=== PATIENT | male | born 1975 | race Caucasian/White ===

== ENCOUNTER → 2017-05-22 12:54 | Outpatient (CLI) | payer BC | END | disposition home or self-care (01) | LOC: D.MRI 12:54 | DX: G35 Multiple sclerosis (principal) ==

== ENCOUNTER → 2017-11-18 15:31 | Outpatient (CLI) | payer BC | END | disposition home or self-care (01) | LOC: D.MRI 15:30 | DX: G35 Multiple sclerosis (principal); R42 Dizziness and giddiness ==

== ENCOUNTER → 2018-06-30 10:44 | Outpatient (CLI) | payer BC | END | disposition home or self-care (01) | LOC: D.MRI 10:44 | DX: G35 Multiple sclerosis (principal) ==

== ENCOUNTER → 2019-10-15 12:49 | Outpatient (CLI) | payer BC ==
[2019-10-16 12:09] LABS: BASOS 1 % (Not Estab.); CD4 - % CD4 POS. LYMPH 48.6 % (30.8-58.5); CD4 - ABSOLUTE CD4 HELPER 1264 /uL (359-1519); EOS 3 % (Not Estab.); EOS (ABSOLUTE) 0.2 x10E3/uL (0.0-0.4); HEMOGLOBIN 12.9 g/dL (13.0-17.7); LYMPHS 36 % (Not Estab.); LYMPHS (ABSOLUTE) 2.6 x10E3/uL (0.7-3.1); MCH 30.4 pg (26.6-33.0); MCHC 35.8 g/dL (31.5-35.7); MCV 85 fL (79-97); MONOCYTES 9 % (Not Estab.); MONOCYTES (ABSOLUTE) 0.6 x10E3/uL (0.1-0.9); NEUTROPHILS 51 % (Not Estab.); NEUTROPHILS (ABSOLUTE) 3.7 x10E3/uL (1.4-7.0); PLATELETS 244 x10E3/uL (150-450); RBC 4.24 x10E6/uL (4.14-5.80); RDW 13.9 % (11.6-15.4); WBC 7.2 x10E3/uL (3.4-10.8)
== END | disposition home or self-care (01) ==
LOC: D.LAB 12:49
PROVIDERS: ATTEND Psychiatry & Neurology Neurology
DX: G35 Multiple sclerosis (principal)

== ENCOUNTER → 2020-01-31 10:26 | Outpatient (CLI) | payer BC ==
[2020-01-31 11:45] LABS: HEMATOCRIT 41.6 % (42.0-54.0); HEMOGLOBIN 14.5 g/dL (13.5-17.5); LYMPHOCYTES 35.5 % (15-50); MCH 31.4 pg (26.0-34.0); MCHC 34.9 g/dL (31.0-37.0); MEAN PLATELET VOLUME 11.1 fL (7.4-10.4); NEUTROPHILS 54.7 % (40-80); PLATELET COUNT 214 10x3/uL (130-400); RBC 4.62 10x6/uL (4.20-6.10); RDW 12.6 % (11.5-14.5); WBC 7.3 10x3/uL (4.8-10.8)
[2020-01-31 11:48] LABS: ALBUMIN 4.3 g/dL (3.4-5.0); ALKALINE PHOSPHATASE 79 U/L (30-120); ALT (SGPT) 26 U/L (10-68); BILIRUBIN - TOTAL 0.51 mg/dL (0.2-1.3); CALC OSMOLALITY 275 mosm/kg (275-300); CALCIUM 9.6 mg/dL (8.5-10.1); CARBON DIOXIDE 30.2 mmol/L (21.0-32.0); CHLORIDE - SERUM 100 mmol/L (98-107); CREATININE - SERUM 0.9 mg/dL (0.6-1.3); GLUCOSE 86 mg/dL (74-106); POTASSIUM - SERUM 4.6 mmol/L (3.5-5.1); PROTEIN - SERUM 7.4 g/dL (6.4-8.2); SODIUM 139 mmol/L (136-145); UREA NITROGEN 11 mg/dL (7-18); eGFR NON AFRICAN AMERICAN > 90 mL/min (90-120)
[2020-02-01 18:08] LABS: BASO (ABSOLUTE) 0.1 x10E3/uL (0.0-0.2); BASOS 1 % (Not Estab.); EOS 3 % (Not Estab.); EOS (ABSOLUTE) 0.2 x10E3/uL (0.0-0.4); HEMATOCRIT 41.9 % (37.5-51.0); HEMOGLOBIN 14.3 g/dL (13.0-17.7); LYMPHS 34 % (Not Estab.); LYMPHS (ABSOLUTE) 2.5 x10E3/uL (0.7-3.1); MCH 31.4 pg (26.6-33.0); MCHC 34.1 g/dL (31.5-35.7); MCV 92 fL (79-97); MONOCYTES 9 % (Not Estab.); MONOCYTES (ABSOLUTE) 0.6 x10E3/uL (0.1-0.9); NEUTROPHILS 52 % (Not Estab.); NEUTROPHILS (ABSOLUTE) 3.8 x10E3/uL (1.4-7.0); PLATELETS 214 x10E3/uL (150-450); RBC 4.55 x10E6/uL (4.14-5.80); RDW 13.2 % (11.6-15.4); WBC 7.3 x10E3/uL (3.4-10.8)
== END | disposition home or self-care (01) ==
LOC: D.LAB 10:26
PROVIDERS: ATTEND Psychiatry & Neurology Neurology
DX: G35 Multiple sclerosis (principal)

== ENCOUNTER 2020-04-26 05:39 | Day surgery (SDC) | payer BC ==
[2020-04-24 10:19] LABS: HEMATOCRIT 41.4 % (42.0-54.0); HEMOGLOBIN 14.3 g/dL (13.5-17.5); MCH 31.4 pg (26.0-34.0); MCHC 34.5 g/dL (31.0-37.0); MEAN PLATELET VOLUME 11.5 fL (7.4-10.4); RBC 4.55 10x6/uL (4.20-6.10); WBC 7.5 10x3/uL (4.8-10.8)
[~2020-04-26] VITALS: Ht 177.8 cm; Wt 72.1 kg
--- NOTE | ~2020-04-26 | OP ---
PATIENT NAME: FITO REAGAN MEDICAL RECORD: [id number] :79 LOCATION:D.OPS ADMISSION DATE: SURGEON: RASHARD HILTON DPM DATE OF OPERATION: 04/26/2020 PREOPERATIVE DIAGNOSIS: Entrapment nerve left dorsal foot. POSTOPERATIVE DIAGNOSIS: Entrapment nerve left dorsal foot. PROCEDURE: Nerve resection, left dorsal foot. ANESTHESIA: General with local infiltrate utilizing lidocaine and Marcaine plain, approximately 10 cc total around the proximal ankle. HEMOSTASIS: Left thigh tourniquet at 350 mmHg. PREOPERATIVE DETAILS: The patient was taken to the OR and placed on the operating table in supine position. This was followed by induction of general anesthesia and infiltration of local anesthetic. The left extremity was then elevated and a tourniquet was inflated. A 15-blade was used to create a 4-cm incision over the dorsal aspect of the left foot extending up to the anterior aspect of the left ankle. The incision was deepened down through subcutaneous tissue being sure to avoid all vital structures. Dissection was carried down to the nerve, which was running across the anterior aspect of the left ankle and dorsal foot. The nerve appeared to be somewhat enlarged. At this time, it was freed proximal up into the anterior ankle and cut and also a cut was made on the distal aspect of the nerve in the wound and the nerve was sent to pathology. The wound was flushed. The subcutaneous tissue was reapproximated with 4-0 Rapide. The skin was closed with 4-0 Rapide in a subcuticular technique followed by Dermabond. Adaptic, 4 x 4 and Conform were used to dress the wound followed by Artie wrap. Tourniquet was deflated. POSTOPERATIVE DETAILS: The patient tolerated the procedure well and left the OR with vital signs stable and vascular status at preoperative levels. The patient was transported to recovery per anesthesia in stable condition. TRANSINT:[id number] Voice Confirmation ID: [id number] DOCUMENT ID: [id number] RASHARD HILTON DPM CC: [id number] DICTATION DATE: 04/26/20 0758 STARCH COOKER: 04/26/2033 [facility] [address] [place] [address]
[~2020-04-26 05:39] MED LIST: LINZESS290 MCG PO; PROVIGIL200 MG PO; TYSABRI IV; VITAMIN B-12250 MC3; VITAMIN B-6100 MG PO
[2020-04-26 06:20] VITALS: BP 106/72; Ht 177.8 cm; Wt 72.1 kg
--- NOTE | 2020-04-26 10:34 | NUR ---
0930 IV D/C'D WITH CANNULA INTACT, PRESSURE HELD, AND DRSG PLACED. DISCHARGE INSTRUCTIONS GIVEN AND BOTH PT AND VERBALIZED AN UNDERSTANDING. OPERATIVE LEG REMAINS NUMBED AND PT IS W/O C/O. DRSG CDI AND BOOT IN PLACE
== END 2020-04-26 09:40 | disposition home or self-care (01) ==
LOC: D.OPS 05:39 → D.PAN 07:00 → D.OPS 07:00
PROVIDERS: Anesthesiology; ATTEND Podiatrist
DX: G58.8 Other specified mononeuropathies (principal)

== ENCOUNTER → 2020-11-17 08:57 | Outpatient (CLI) | payer BC ==
[2020-04-26 06:20] VITALS: BMI 22.8
== END | disposition home or self-care (01) ==
LOC: D.MRI 08:57
PROVIDERS: ATTEND Psychiatry & Neurology Neurology
DX: G35 Multiple sclerosis (principal)